=== PATIENT | female | born 1980 | race Two or more races ===

== ENCOUNTER 2020-10-16 09:17 | Inpatient (IN) | payer OTHER ==
[2020-10-11 11:57] LABS: Basophils # (auto) 0 10 ^3/uL (0-0.2); Basophils % (auto) 0.2 % (0.0-2.0); Eosinophils # (auto) 0.1 10 ^3/uL (0-0.8); Eosinophils % (auto) 0.9 % (0.0-7.0); Hematocrit 39.8 % (36.0-46.0); Hemoglobin 13.5 g/dL (12.2-16.2); Lymphocytes # (auto) 2.5 10 ^3/uL (0.4-5.4); Lymphocytes % (auto) 31.7 % (10.0-50.0); Mean Corpuscular Hemoglobin 31.5 pg (28.0-32.0); Mean Corpuscular Volume 92.5 fL (80.0-100.0); Monocytes # (auto) 0.5 10 ^3/uL (0-1.3); Monocytes % (auto) 5.8 % (0.0-12.0); Neutrophils # (auto) 4.8 10 ^3/uL (1.6-8.6); Neutrophils % (auto) 61.4 % (37.0-80.0); Nucleated Red Blood Cells % 0.1 %; Platelet Count (auto) 233 10^3/uL (140-450); Red Cell Distribution Width 15.2 % (11.8-14.3); White Blood Cell 7.9 10^3/uL (4.4-10.8)
[2020-10-11 12:05] LABS: Urine Bacteria NONE SEEN /hpf (None Seen); Urine Blood Negative /uL (Negative); Urine Mucus FEW (None Seen); Urine Specific Gravity 1.028 (1.001-1.035); Urine WBC 2 /hpf (0 - 5)
[2020-10-11 12:09] LABS: INR 1.09 (0.9-1.15); Partial Thromboplastin Time 31.5 sec (23.0-31.2)
[2020-10-11 13:09] LABS: Albumin 3.5 g/dL (3.4-5.0); Calcium 8.8 mg/dL (8.5-10.1)
[2020-10-11 13:14] LABS: BUN/Creatinine Ratio 28.4; Bilirubin, Total 0.4 mg/dL (0.2-1.0); Total Protein 7.6 g/dL (6.4-8.2)
[~2020-10-16] VITALS: Ht 167.6 cm; Wt 95.7 kg
[~2020-10-16 09:17] MED LIST: ERGO1CAP12 PO; LEVO25TA6 PO; MULT-1058 PO; OMEG300C7 PO
[2020-10-16] MEDS ORDERED: GLYCOPYRROLATE 0.2 MG/ML 1ML VIAL ONE ×2 (10:36→14:08)
[2020-10-16] MEDS ORDERED: LIDOCAINE 2% (LOCAL ANESTH.) PF 5ml SDV ONE (10:36)
[2020-10-16] MEDS ORDERED: DexAMETHasone SOD PHOS 10MG/1ML VIAL INJ ONE (10:36)
[2020-10-16] MEDS ORDERED: ePHEDrine SULFATE 50 MG/ML AMP ONE (10:36)
[2020-10-16] MEDS ORDERED: MIDAZOLAM HCL 1MG/1ML-2 ML VIAL ONE (10:36)
[2020-10-16] MEDS ORDERED: PROPOFOL 10 MG/ML 20 ML IV ONE (10:36)
[2020-10-16] MEDS ORDERED: KETOROLAC TROMETH 30 MG/ML 1ML VIAL ONE (10:36)
[2020-10-16] MEDS ORDERED: ONDANSETRON HCL 4 MG/2 ML VIAL ONE (10:36)
[2020-10-16] MEDS ORDERED: HYDROmorphone HCL 2 MG/ML VL ONE (10:36)
[2020-10-16] MEDS ORDERED: fentaNYL CITRATE 100 MCG/2 ML VL ONE (10:36)
[2020-10-16] MEDS ORDERED: CLINDAMYCIN 600MG IV 50 ML IV ONE (11:03)
[2020-10-16] MEDS ORDERED: ONDANSETRON HCL 4 MG/2 ML VIAL IV PRN ×2 (11:30→16:00)
[2020-10-16] MEDS ORDERED: ACETAMINOPHEN/CODEINE#3 (300/30mg) TAB PO PRN ×2 (11:30→20:15)
[2020-10-16] MEDS ORDERED: ACETAMINOPHEN 500 MG TAB PO PRN (11:30)
[2020-10-16] MEDS ORDERED: CLINDAMYCIN 900MG IV 50 ML IV ONE ×2 (11:30→11:56)
[2020-10-16] MEDS ORDERED: MORPHINE SULFATE 4 MG/ML SYR/VIAL IV PRN ×2 (11:30→20:00)
[2020-10-16] MEDS ORDERED: MORPHINE SULF INJ 2 MG/ML SYRINGE 1ML IV PRN ×3 (11:30→20:00)
[2020-10-16] MEDS ORDERED: NITROGLYCERIN 0.4 MG SL TAB SL PRN (11:30)
[2020-10-16] MEDS ORDERED: BUPIVACAINE 0.25% INJ 50ML VIAL ONE (11:32)
[2020-10-16] MEDS ORDERED: METHYLENE BLUE 0.5% 5MG/ML 10ml AMP IV ONE (11:32)
[2020-10-16] MEDS ORDERED: LIDOCAINE W/ EPINEPHRINE 1% 20ML VIAL ONE (11:32)
[2020-10-16] MEDS ORDERED: FAMOTIDINE (10MG/ML) 2ML VL IV ONE (11:50)
[2020-10-16] MEDS ORDERED: SUCCINYLCHOLINE CHLORIDE 20 MG/ML 10ML VIAL IV ONE (11:57)
[2020-10-16] MEDS ORDERED: CONJ ESTROGENS 0.625MG/GM VAG CRM 30GM PV ONE (14:56)
[2020-10-16] MEDS ORDERED: HYDROmorphone HCL 2 MG/ML VL IV PRN (16:00)
[2020-10-16 17:00] VITALS: BP 122/72
[2020-10-16] MEDS: SODIUM CHLORIDE 0.9% 1,000 ML IV SCH ×2 (17:17→19:30)
[2020-10-16 18:57] VITALS: BP 122/72
[2020-10-16 20:11] VITALS: BP 128/78
[2020-10-16 22:00] VITALS: BP 131/78
[2020-10-16] MEDS ORDERED: KETOROLAC TROMETH 60MG/2ML VIAL IV PRN (22:15)
[2020-10-16] MEDS ORDERED: IBUPROFEN 800 MG TAB PO PRN (22:15)
[2020-10-17] MEDS: SODIUM CHLORIDE 0.9% 1,000 ML IV SCH ×3 (00:21→07:50)
[2020-10-17] MEDS ORDERED: HYDROmorphone HCL 2 MG/ML VL IV ONE ×2 (02:45→09:15)
[2020-10-17 02:55] VITALS: BP 135/79
[2020-10-17] MEDS ORDERED: ACETAMINOPHEN/CODEINE#3 (300/30mg) TAB PO PRN ×2 (03:00→03:15)
[2020-10-17] MEDS ORDERED: KETOROLAC TROMETH 60MG/2ML VIAL IM PRN (03:00)
[2020-10-17] MEDS ORDERED: MORPHINE SULFATE 4 MG/ML SYR/VIAL IV PRN (03:00)
[2020-10-17 05:00] VITALS: BP 126/63
[2020-10-17 09:00] VITALS: BP 114/73
[2020-10-17 09:36] VITALS: BP 114/73
== END 2020-10-17 12:05 | disposition home or self-care (01) | DRG 743 ==
LOC: SUR 09:17 → OVERFLOW 11:30 → WEST WING 16:43
PROVIDERS: ADMIT Obstetrics & Gynecology; ATTEND Obstetrics & Gynecology
PROC: 0UT74ZZ Resection of Bilateral Fallopian Tubes, Percutaneous Endoscopic Approach (ICD-10-PCS; 2020-10-16)
PROC: 8E0W4CZ Robotic Assisted Procedure of Trunk Region, Percutaneous Endoscopic Approach (ICD-10-PCS; 2020-10-16)
PROC: 0JQC3ZZ Repair Pelvic Region Subcutaneous Tissue and Fascia, Percutaneous Approach (ICD-10-PCS; 2020-10-16)
PROC: 0UT94ZL Resection of Uterus, Supracervical, Percutaneous Endoscopic Approach (ICD-10-PCS; principal; 2020-10-16 11:57)
DX: N73.6 Female pelvic peritoneal adhesions (postinfective) (principal); N81.4 Uterovaginal prolapse, unspecified; Z20.822 Contact with and (suspected) exposure to COVID-19; E03.9 Hypothyroidism, unspecified; Z90.711 Acquired absence of uterus with remaining cervical stump; Z98.51 Tubal ligation status; Z88.0 Allergy status to penicillin; Z88.8 Allergy status to other drugs, medicaments and biological substances
CPT/HCPCS: 36415; 80053; 81001; 84702; 85025; 85610; 85730; 86850; 86900; 86901; 87086; G0378; J0330; J1100; J1885; J2001; J2250; J2405; J2704; J3490

== ENCOUNTER → 2021-07-23 | Day surgery (SDC) | payer OTHER, MEDICAID ==
[2021-07-20 12:35] LABS: Urine Bacteria NONE SEEN /hpf (None Seen); Urine Blood Negative /uL (Negative); Urine Specific Gravity 1.007 (1.001-1.035); Urine WBC <1 /hpf (0 - 5)
[2021-07-20 13:15] LABS: Potassium 3.8 mmol/L (3.5-5.1)
[2021-07-20 13:21] LABS: Albumin 3.5 g/dL (3.4-5.0); BUN/Creatinine Ratio 31.9; Calcium 8.6 mg/dL (8.5-10.1)
[2021-07-20 13:24] LABS: Bilirubin, Total 0.3 mg/dL (0.2-1.0); Total Protein 7.3 g/dL (6.4-8.2)
[2021-07-20 13:48] LABS: Basophils # (auto) 0 10 ^3/uL (0-0.2); Basophils % (auto) 0.2 % (0.0-2.0); Eosinophils # (auto) 0.1 10 ^3/uL (0-0.8); Eosinophils % (auto) 1.4 % (0.0-7.0); Hemoglobin 13.2 g/dL (12.2-16.2); Lymphocytes # (auto) 2.1 10 ^3/uL (0.4-5.4); Lymphocytes % (auto) 39.5 % (10.0-50.0); Mean Corpuscular Hemoglobin 28.5 pg (28.0-32.0); Mean Corpuscular Volume 86.4 fL (80.0-100.0); Monocytes # (auto) 0.4 10 ^3/uL (0-1.3); Monocytes % (auto) 6.7 % (0.0-12.0); Neutrophils # (auto) 2.8 10 ^3/uL (1.6-8.6); Neutrophils % (auto) 52.2 % (37.0-80.0); Nucleated Red Blood Cells % 0.1 %; Red Blood Cells 4.64 10^6/uL (4.0-5.20); White Blood Cell 5.4 10^3/uL (4.4-10.8)
[~2021-07-23] VITALS: Ht 167.6 cm; Wt 80.3 kg
[~2021-07-23] MED LIST changes: +BUPIVACAINE 0.25% INJ 50ML VIAL ONE; +CLINDAMYCIN 600MG IV 50 ML IV ONE; +CONJ ESTROGENS 0.625MG/GM VAG CRM 30GM PV ONE; +HYDROmorphone HCL 2 MG/ML VL IV PRN; +LIDOCAINE 1% HCL (LOCAL ANESTH.) INJ 20ML MDV ONE; +LIDOCAINE 2% (LOCAL ANESTH.) PF 5ml SDV ONE; +MIDAZOLAM HCL 2MG/2ML 2ml VIAL (1mg/ml) ONE; -OMEG300C7 PO; +ONDANSETRON HCL 4 MG/2 ML VIAL IV PRN; +ONDANSETRON HCL 4 MG/2 ML VIAL ONE; +POVIDONE IODINE 10 % TOPICAL OINT 30GM TOP ONE; +fentaNYL CITRATE 5 ML ONE
[2021-07-23 12:55] VITALS: BP 132/74
== END | disposition home or self-care (01) ==
LOC: SUR 10:09
PROVIDERS: ATTEND Obstetrics & Gynecology
DX: R10.2 Pelvic and perineal pain (principal); E03.9 Hypothyroidism, unspecified; Z98.51 Tubal ligation status; Z98.891 History of uterine scar from previous surgery; Z98.890 Other specified postprocedural states; Z79.899 Other long term (current) drug therapy; Z88.0 Allergy status to penicillin; Z82.49 Family history of ischemic heart disease and other diseases of the circulatory system; Z20.822 Contact with and (suspected) exposure to COVID-19
CPT/HCPCS: 36415; 58563; 80053; 81001; 81025; 84702; 85025; 86850; 86900; 86901; 87086; J2001; J2250; J2405; J3010; J3490; U0003